=== PATIENT | female | born 1965 ===

== ENCOUNTER 2019-11-03 09:47 | Day surgery (SDC) | payer BC, OTHER ==
[~2019-11-03 09:47] MED LIST: Buffered Lidocaine 1% SYRIN 1 ml INTRADERM ONE; Famotidine IV 10 MG/ML 2 ml VIAL (20 mg) IV ONE; Lactated Ringers 1000 ml BAG 1,000 ML IV SCH
[2019-11-03] MEDS ORDERED: ceFAZolin 2 GM PREMIX in ORs 2 GM/50 ML BAG ONE (10:06)
[2019-11-03] MEDS ORDERED: Buffered Lidocaine 1% SYRIN 1 ml INTRADERM ONE (10:06)
[2019-11-03] MEDS ORDERED: Famotidine IV 10 MG/ML 2 ml VIAL (20 mg) ONE (10:06)
[2019-11-03] MEDS ORDERED: Midazolam 2 mg/2 ml VIAL 1 mg/ml 2 ml VIAL (2 mg) ONE (11:37)
[2019-11-03] MEDS ORDERED: fentaNYL 100 mcg/2 ml 50 MCG/ML VIAL ONE ×3 (11:37→14:16)
[2019-11-03] MEDS ORDERED: Bupivacaine 0.25% SDV 30 ML ONE (11:40)
[2019-11-03] MEDS ORDERED: Lidocaine 2% PF 5 ML VIAL ONE (12:09)
[2019-11-03] MEDS ORDERED: Dexamethasone IV 4 MG/ML VIAL 1 ml VIAL ONE (12:29)
[2019-11-03] MEDS ORDERED: Propofol 10 MG/ML 20 ML BTL ONE (12:29)
[2019-11-03] MEDS ORDERED: Ondansetron 4 mg VIAL 2 MG/ML 2 ml VIAL ONE (12:29)
[2019-11-03] MEDS ORDERED: Naloxone 0.4 mg VIAL 0.4 mg/ml 1 ml VIAL IV PRN (13:16)
[2019-11-03] MEDS ORDERED: Prochlorperazine 5 mg/ml 2 ml VIAL (10 mg) IV PRN (13:16)
[2019-11-03] MEDS ORDERED: Levalbuterol 0.63MG/3ML NEB UNIT OF USE INH PRN (13:16)
[2019-11-03] MEDS ORDERED: diPHENhydraMINE IV 50 MG/ML 1 ml VIAL (BENADRYL) IV PRN (13:16)
[2019-11-03] MEDS ORDERED: Ondansetron 4 mg VIAL 2 MG/ML 2 ml VIAL IV PRN (13:16)
[2019-11-03] MEDS ORDERED: HYDROcodone/ACETAMIN 5/325 mg TAB PO PRN ×2 (13:16)
[2019-11-03] MEDS ORDERED: DiMENhydriNATE IV 50 mg/ml 1 ml VIAL IV PUSH PRN (13:16)
[2019-11-03] MEDS: fentaNYL 100 mcg/2 ml 50 MCG/ML VIAL IV PRN ×3 (14:17→15:16)
[2019-11-03] MEDS ORDERED: HYDROcodone/ACETAMIN 5/325 mg TAB ONE (14:33)
[2019-11-03 15:18] VITALS: BP 115/74
[2019-11-06] MEDS ORDERED: Scopolamine PATCH Remove NOTE PATCH OFF ONE (13:17)
== END 2019-11-03 15:40 | disposition home or self-care (01) ==
LOC: OR 09:47
PROVIDERS: ATTEND Orthopaedic Surgery Hand Surgery